=== PATIENT | male | born 1965 | race African-American/Black ===

== ENCOUNTER 2024-09-28 08:11 | Emergency (ER) | payer SELFPAY ==
[~2024-09-28] VITALS: Ht 172.7 cm; Wt 75.0 kg
[2024-09-28 08:14] VITALS: O2SAT 100
[2024-09-28] MEDS: SODIUM CHLORIDE 0.9% 1,000 ML IV ONE (10:12)
[2024-09-28] MEDS: ONDANSETRON HCL 4MG/2ML INJ IV ONE ×2 (10:14→13:02)
[2024-09-28] MEDS: KETOROLAC 15MG/ML VIAL IV ONE (10:14)
[2024-09-28 10:45] LABS: *AMPHETAMINES SCREEN URINE NEGATIVE (NEGATIVE); *BARBITURATES SCREEN URINE NEGATIVE (NEGATIVE); *BENZODIAZEPINES SCREEN URINE NEGATIVE (NEGATIVE); *COCAINE SCREEN URINE NEGATIVE (NEGATIVE); CANNABINOID URINE SCREEN NEGATIVE (NEGATIVE); ECSTASY MDMA SCREEN URINE NEGATIVE (NEGATIVE); METHADONE URINE SCREEN NEGATIVE (NEGATIVE); OPIATES URINE SCREEN NEGATIVE (NEGATIVE); PHENCYCLIDINE URINE SCREEN NEGATIVE (NEGATIVE)
[2024-09-28 11:02] LABS: BASOPHILS % 0.7 % (0.0-2.0); EOSINOPHILS % 0.5 % (0.0-5.0); HEMATOCRIT. 41.3 % (42.0-52.0); HEMOGLOBIN. 14.2 g/dL (14.0-18.0); LYMPHOCYTES % 9.0 % (20.0-50.0); MEAN PLATELET VOLUME 8.0 fl (7.4-10.4); MONOCYTES % 8.4 % (2.0-8.0); NEUTROPHILS % 81.4 % (40.0-76.0); PLATELET 406 x1000/uL (130-400); RED BLOOD CELL COUNT 4.81 mill/uL (4.7-6.1); RED CELL DISTRIBUTION WIDTH 13.7 % (11.6-14.6)
[2024-09-28 11:18] LABS: CREATININE 1.0 mg/dL (0.6-1.3); UREA NITROGEN BLOOD 13 mg/dL (9-23)
[2024-09-28 11:19] LABS: ETHANOL BLOOD < 10 mg/dL (<10)
[2024-09-28 11:20] LABS: ASPARTATE AMINOTRANSFERASE 19 IU/L (<34); BILIRUBIN DIRECT 0.1 mg/dL (<=3.0)
[2024-09-28 11:21] LABS: BILIRUBIN TOTAL 0.5 mg/dL (0.1-1.0); PROTEIN TOTAL 7.6 g/dL (6.0-8.3)
[2024-09-28] MEDS: MORPHINE SULFATE 4 MG/ML INJ (FOR IV/IM USE) IV ONE (13:01)
[2024-09-28 13:41] VITALS: TEMP 36.7
[2024-09-28] MEDS ORDERED: T3 PO (14:32)
[2024-09-28] MEDS ORDERED: IBUP-2029 MT (14:32)
[2024-09-28 14:43] VITALS: BP 135/74; PULSE 64; RESP 12; O2SAT 100
== END 2024-09-28 14:49 | disposition home or self-care (01) ==
LOC: ER 08:11
DX: K80.50 Calculus of bile duct without cholangitis or cholecystitis without obstruction (principal); Z88.0 Allergy status to penicillin; Z79.899 Other long term (current) drug therapy
CPT/HCPCS: 80076; 80305; 80048; 80320; 83690; 85025; 36415; 76705; 74181; 96361; 96374; 96375; 96376; 99285; J1885; J2405; J2270; J7030; Z7610; G0480